=== PATIENT | female | born 1950 | race Caucasian/White ===

== ENCOUNTER → 2019-01-11 | Emergency (ER) | payer OTHER ==
[~2019-01-11] VITALS: Ht 152.4 cm; Wt 62.1 kg
[~2019-01-11] MED LIST: CEPH-443 PO; IBUP-1542 PO; KETOROLAC 30 MG INJ IM STA; TRAM50TA2 PO
[2019-01-11 13:34] VITALS: Ht 152.4 cm; Wt 62.1 kg
--- NOTE | 2019-01-11 15:31 | ERD ---
ER Documentation Chief Complaint Chief Complaint Complains of right hand pain and swelling x 3 days HPI 68-year-old female past medical history of hypertension who presents with complaint of right hand pain and swelling over the past 3 days. Reports she had swelling which began in the fingers of right hand approximately 3 weeks ago but more recently spread to entire hand and wrist. Scribes pain that is worse at night. Denies history of osteoarthritis or similar symptoms in the past. She denies recent trauma, fall on hand, bug or animal bite. Time examination pat ient nontoxic-appearing with triage vital signs. ROS All systems reviewed and are negative except as per history of present illness. Medications Home Meds Active Scripts Cephalexin* (Keflex*) 500 Mg Capsule, 500 MG PO QID for 7 Days, CAP Prov:JEUDINEKATEHO PA-C 01/11/19 Ibuprofen* (Motrin*) 600 Mg Tab, 600 MG PO Q6, #30 TAB Prov:JEUDINE,KATEHO PA-C 01/11/19 Tramadol HCl (Tramadol HCl) 50 Mg Tablet, 50 MG PO Q6, #20 TAB Prov:JEKATE ANDRESHO PA-C 01/11/19 Allergies Allergies: Coded Allergies: No Known Allergy (Unverified , 01/11/19) PMhx/Soc Medical and Surgical Hx: pt denies Medical Hx, pt denies Surgical Hx Hx Alcohol Use: No Hx Substance Use: No Hx Tobacco Use: No FmHx Family History: No diabetes, No coronary disease, No other Physical Exam Vitals Vital Signs Date Temp Pulse Resp B/P (MAP) Pulse Ox O2 O2 Flow FiO2 Time Delivery Rate 01/11/19 98.6 65 20 147/77 97 13:34 (100) Physical Exam Const: No acute distress Head: Atraumatic Eyes: Normal Conjunctiva ENT: Normal External Ears, Nose and Mouth. Neck: Full range of motion. No meningismus. Resp: Clear to auscultation bilaterally Cardio: Regular rate and rhythm, no murmurs Abd: Soft, non tender, non distended. Normal bowel sounds Skin: No petechiae or rashes Back: No midline or flank tenderness Ext: Right hand with significant swelling, tender to touch, no prominent erythema, positive warmth, no areas of laceration or lesion, silt throughout right hand, wiggles all fingers but unable to make close fist Neur: Awake and alert Psych: Normal Mood and Affect Results 24 hrs Current Medications Medications Dose Sig/Yasmeen Start Time Status Last (Trade) Ordered Route PRN Stop Time Admin Dose Reason Admin Ketorolac 30 mg ONCE STAT 01/11/19 DC 01/11/19 Tromethamine IM 15:16 01/11/19 15:29 (Toradol) 15:17 Procedures/MDM 68-year-old female presents with right hand pain and swelling. And with p rominence sausage tissue swelling on x-ray but no findings of fracture. Etiology of swelling unclear but will treat as cellulitis given x-ray findings. Patient has no signs or symptoms of disseminated infection. I have low suspicion for dermatologic process requiring further emergent work-up or treatment. We will treat with course of Keflex and advised patient follow-up with PMD return to ED if not improving. Sensation intact throughout the affected hand and patient able to wiggle all fingers without issue. ED course: Toradol for pain, patient with improvement in pain symptoms and reporting improvement in swelling after treatment, will discharge with pain medication for anti-inflammatory properties DISPOSITION PLAN: We discussed follow up with the patient's primary care doctor within 24 to 48 hours. Patient counseled regarding my diagnostic impression and care plan. Prior to discharge all questions answered. Pt agrees with treatment plan and understands strict return precautions. Precautionary instructions provided including instructions to return to the ER if not improving or for any worsening or changing symptoms or concerns. Disclaimer: Inadvertent spelling and grammatical errors are likely due to EHR/dictation software use and do not reflect on the overall quality of patient care. Also, please note that the electronic time recorded on this note does not necessarily reflect the actual time of the patient encounter. Departure Diagnosis: Primary Impression: Pain of hand Condition: Stable SUNNY REA PA-C January 11, 2019 15:31
[2019-01-11 16:40] VITALS: BP 133/79; PULSE 70; RESP 20
== END | disposition home or self-care (01) ==
LOC: FTE 13:23
DX: M79.641 Pain in right hand (principal)
CPT/HCPCS: 73130; 96372; 99284; J1885